=== PATIENT | female | born 1980 | race Asian ===

== ENCOUNTER 2024-05-23 10:55 | Outpatient (CLI) | payer BC, SELFPAY | END 2024-05-23 10:56 | disposition home or self-care (01) | PROVIDERS: PCP Emergency Medicine; Visit Provider Family Medicine | DX: K62.5 Hemorrhage of anus and rectum (principal); R53.83 Other fatigue; M72.2 Plantar fascial fibromatosis; Z83.3 Family history of diabetes mellitus; Z76.89 Persons encountering health services in other specified circumstances; Z11.59 Encounter for screening for other viral diseases; Z13.6 Encounter for screening for cardiovascular disorders | CPT/HCPCS: 80053; 80061; 84443; 86803 ==